=== PATIENT | male | born 1980 | race Caucasian/White ===

== ENCOUNTER → 2017-02-13 | Outpatient (CLI) | payer OTHER | LOC: RAD 09:29 | DX: M54.5 Low back pain (principal); M48.16 Ankylosing hyperostosis [Forestier], lumbar region; M48.56XA Collapsed vertebra, not elsewhere classified, lumbar region, initial encounter for fracture | CPT/HCPCS: 72072; 72110 ==

== ENCOUNTER → 2017-02-16 | Outpatient (CLI) | payer OTHER | LOC: KOH-I 09:15 | DX: M54.5 Low back pain (principal); M48.56XA Collapsed vertebra, not elsewhere classified, lumbar region, initial encounter for fracture; F41.9 Anxiety disorder, unspecified; F32.9 Major depressive disorder, single episode, unspecified; I10 Essential (primary) hypertension; M99.43 Connective tissue stenosis of neural canal of lumbar region; S32.029A Unspecified fracture of second lumbar vertebra, initial encounter for closed fracture | CPT/HCPCS: 72148 ==